=== PATIENT | female | born 2000 | race Caucasian/White ===

== ENCOUNTER 2020-10-16 19:02 | Emergency (ER) | payer OTHER, SELFPAY ==
[2020-10-16 19:14] VITALS: BP 115/62; BP 120/72; PULSE 77; PULSE 92; RESP 20; O2SAT 100; O2SAT 99; BMI 34.7
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
[2020-10-16] MEDS: Ibuprofen 600 MG TABLET PO (19:58)
[2020-10-16] MEDS: Cyclobenzaprine HCl 10 MG TABLET PO (19:59)
== END 2020-10-16 20:01 | disposition home or self-care (01) ==
PROVIDERS: Emergency Provider Internal Medicine
DX: S19.9XXA Unspecified injury of neck, initial encounter (principal); M54.2 Cervicalgia; G44.309 Post-traumatic headache, unspecified, not intractable; V43.52XA Car driver injured in collision with other type car in traffic accident, initial encounter; Y93.9 Activity, unspecified; Y92.410 Unspecified street and highway as the place of occurrence of the external cause; Y99.9 Unspecified external cause status; Z79.899 Other long term (current) drug therapy
CPT/HCPCS: 99283